=== PATIENT | female | born 1995 | race Caucasian/White ===

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

== ENCOUNTER → 2020-03-29 | Outpatient (CLI) | payer OTHER ==
[~2020-03-29] MED LIST changes: +MELA10CA PO; +ZOFR4TAB14 PO; +birth control pill PO
--- NOTE | 2020-04-18 11:21 | REP ---
BILATERAL MRI OF THE HIPS HISTORY: Hip pain. Bilateral popping. TECHNIQUE: MRI bilateral hips performed utilizing multiple sequences in the axial, coronal, and sagittal planes. FINDINGS: On the right, there appears to be a small cortical bump at the junction of the right femoral head and neck anteriorly. There is a small subcortical cyst at that location measuring about 3 mm in diameter. There is also mild subcortical marrow edema in this region. No similar cortical bump is seen on the left. There are no other areas of abnormal bone marrow signal of the visualized osseous structures. There is no other evidence of marrow edema or occult fracture. There is no evidence of avascular necrosis at either hip. There is no evidence of a labral tear bilaterally. No paralabral cyst is seen. There is a very small left hip joint effusion. No effusion is seen in the right hip. Soft tissue structures surrounding the hips demonstrate normal signal and are unremarkable. No mass or free fluid is seen in the visualized pelvis. The ovaries appear normal. The uterus is deviated to the left of midline. No other abnormalities are seen. IMPRESSION: * MRI of the bilateral hips shows signs of possible femoral acetabular impingement on the right with a small cortical bump anteriorly at the junction of the right femoral head and neck with associated subcortical 3 mm cyst and mild marrow edema in this region. However, there is no evidence of a labral tear bilaterally nor is there evidence of a paralabral cyst. * Very small joint effusion of the left hip without evidence of effusion of the right hip. I see no other significant findings. MTDD
== END ==
LOC: M RAD 15:02
PROVIDERS: ATTEND Family Medicine
DX: M25.552 Pain in left hip (principal); M25.551 Pain in right hip; M25.452 Effusion, left hip

== ENCOUNTER → 2020-10-01 | Outpatient (REF) | payer OTHER | LOC: M WUC 09:29 | PROVIDERS: ATTEND Physician Assistant | DX: J02.9 Acute pharyngitis, unspecified (principal) ==

== ENCOUNTER → 2021-04-24 | Outpatient (CLI) | payer BC, OTHER ==
[2021-04-24 17:52] LABS: BASO % 0.6 % (0.0-1.0); EOS # 0.1 10^3/uL (0.0-0.5); HEMATOCRIT 36.5 % (36.0-47.0); HEMOGLOBIN 12.2 g/dl (12.0-15.5); LYMPH # 1.4 10^3/uL (1.5-5.0); LYMPH % 19.8 % (24.0-44.0); MEAN CORPUSCULAR HGB CONC 33.4 g/dl (32.0-36.5); MEAN CORPUSCULAR VOLUME 89.7 fl (80.0-96.0); MONO # 0.4 10^3/uL (0.0-0.8); MONO % 5.8 % (2.0-8.0); NEUTROPHILS # 5.3 10^3/uL (1.5-8.5); NEUTROPHILS % 72.4 % (36.0-66.0); PLATELET COUNT, AUTOMATED 220 10^3/uL (150-450); RED BLOOD COUNT 4.07 10^6/uL (4.00-5.40); WHITE BLOOD COUNT 7.3 10^3/uL (4.0-10.0)
[2021-04-24 19:04] LABS: FREE T4 0.84 NG/DL (0.76-1.46)
[2021-04-24 19:20] LABS: GC DNA AMPLIFICATION NEGATIVE (NEGATIVE)
[2021-04-24 19:47] LABS: HIV 1&2 SCREEN CENTAUR NEGATIVE (NEGATIVE)
== END ==
LOC: M PLALAB 13:59
PROVIDERS: ATTEND Advanced Practice Midwife
DX: Z34.01 Encounter for supervision of normal first pregnancy, first trimester (principal); Z3A.13 13 weeks gestation of pregnancy

== ENCOUNTER → 2021-05-16 | Outpatient (CLI) | payer BC ==
--- NOTE | 2021-05-17 08:14 | REP ---
INDICATION: CONFIRM DATING. COMPARISON: None. TECHNIQUE: And images of the gravid uterus were obtained. FINDINGS: LMP 01/19/2021 = 16 weeks 5 days, [place](LMP) = 10/26/2021 Today's sono findings = 16 weeks 3 days, [place] (today's sono) = 10/28/2021 Number: 1 Position: Variable Heart Rate: 150 BPM Placental Position: Posterior Amniotic Fluid Volume: Normal Cervix Length 3.0 cm MEASUREMENTS: BPD: 3.4 cm, consistent with 16 weeks 4 days, mean gestational age. HC: 12.9 cm, consistent with 16 weeks 4 days, mean gestational age. AC: 10.6 cm, consistent with 16 weeks 4 days, mean gestational age. FL: 2.1 cm, consistent with 16 weeks 1 day, mean gestational age. Estimated Weight: 154 grams 40 percentile The following structures are visualized and are unremarkable: Cranium, cavum, cerebellum, posterior fossa-cisterna magna, choroid plexus, midline falx, lateral ventricles, orbits, face-profile, face-lips/mouth, neck, 4-chamber heart, RVOT, LVOT, diaphragm, stomach, kidneys, bladder, abdominal wall, cord insertion, umbilical arteries, 3-vessel cord, color Doppler, spine and upper and lower extremities. IMPRESSION: 1. Single living intrauterine of 16 weeks 3 days, mean gestational age. The estimated date of delivery is 10/28/2021. 2. There are no anomalies detected. <Electronically signed by Joey Chou > 05/17/21 0825
== END ==
LOC: M WHC 08:34
PROVIDERS: ATTEND Advanced Practice Midwife
DX: Z36.9 Encounter for antenatal screening, unspecified (principal); Z3A.16 16 weeks gestation of pregnancy

== ENCOUNTER → 2021-06-07 | Outpatient (CLI) | payer BC, OTHER | LOC: M PLALAB 11:51 | PROVIDERS: ATTEND Advanced Practice Midwife | DX: Z34.82 Encounter for supervision of other normal pregnancy, second trimester (principal); Z3A.00 Weeks of gestation of pregnancy not specified ==

== ENCOUNTER → 2021-07-25 | Outpatient (CLI) | payer BC, OTHER | LOC: M WHC 07:59 | PROVIDERS: ATTEND Obstetrics & Gynecology | DX: O26.842 Uterine size-date discrepancy, second trimester (principal); Z3A.26 26 weeks gestation of pregnancy ==

== ENCOUNTER → 2021-07-31 | Outpatient (CLI) | payer BC, OTHER ==
[2021-07-31 13:23] LABS: HEMATOCRIT 34.1 % (36.0-47.0); HEMOGLOBIN 11.1 g/dl (12.0-15.5); MEAN CORPUSCULAR HEMOGLOBIN 30.4 pg (27.0-33.0); MEAN CORPUSCULAR HGB CONC 32.6 g/dl (32.0-36.5); MEAN CORPUSCULAR VOLUME 93.4 fl (80.0-96.0); PLATELET COUNT, AUTOMATED 190 10^3/uL (150-450); RED BLOOD COUNT 3.65 10^6/uL (4.00-5.40); WHITE BLOOD COUNT 6.6 10^3/uL (4.0-10.0)
== END ==
LOC: M PLALAB 09:57
PROVIDERS: ATTEND Obstetrics & Gynecology
DX: Z34.92 Encounter for supervision of normal pregnancy, unspecified, second trimester (principal); Z3A.23 23 weeks gestation of pregnancy

== ENCOUNTER → 2022-01-15 | Outpatient (REF) | payer OTHER, BC ==
[~2022-01-15] MED LIST changes: +ACET-683 PO; +IBUP80TA PO; +PRENTAB9 PO; +ZOLO100T PO
[2022-01-15 20:16] LABS: GC DNA AMPLIFICATION NEGATIVE (NEGATIVE)
== END ==
LOC: M SFHCWAGY 17:01
PROVIDERS: ATTEND Obstetrics & Gynecology
DX: Z11.3 Encounter for screening for infections with a predominantly sexual mode of transmission (principal); Z12.4 Encounter for screening for malignant neoplasm of cervix